=== PATIENT | female | born 1965 | race Asian ===

== ENCOUNTER 2025-04-23 16:16 | Outpatient (AMB) | payer OTHER, SELFPAY ==
--- NOTE | 2025-04-23 16:33 | MHC.OFFWIV ---
Intake Vital Signs 04/23/25 16:35 Height 5 ft 2 in Weight 122 lb BMI 22.3 BP 142/90 H Blood Pressure Location Lt brachial Position Sitting Pulse 96 Pulse Source Pulse Oximeter Temp 98.3 F Temp Source Oral Pulse Oximetry (%) 98 Oxygen Delivery Method Room Air Comment High BP: pt unable to take BP meds d/t stomach pain- provider notified Intake Visit Reasons: EP-abdominal pain Intake Note: pt presents with abdominal pain for a couple days - denies pain with urination,diarrhea, constipation, nausea/vomiting Allergies No Known Allergies Allergy (Verified 04/23/25 16:35) Medication List - Last Reconciled 04/23/25 by Katherine Delcid NP famotidine 20 mg PO BEDTIME lisinopril-hydrochlorothiazide 20-25 mg 1 tab PO DAILY metformin 850 mg PO BID omeprazole 20 mg PO BID Do you need a note to return to daycare/school/sports/work: No HPI HPI Comments History of Present Illness Details Patient presents with epigastric pain for 2 days. Reports a history of acid reflux and is currently taking Omeprazole 20 mg daily. Denies nausea, vomiting, diarrhea, constipation, urinary or vaginal symptoms. Denies fevers or chills. [facility] Medical History (Updated 04/23/25 @ 17:21 by Katherine Delcid NP) GERD (gastroesophageal reflux disease) Physical Exam Vital Signs: Last Vital Signs Temp 98.3 F 04/23/25 16:35 Pulse 96 04/23/25 16:35 BP 142/90 H 04/23/25 16:35 Pulse Ox 98 04/23/25 16:35 Oxygen Delivery Method Room Air 04/23/25 16:35 BMI result Body Mass Index 22.3 Const General: no acute distress Nutritional Appearance: well nourished Orientation/consciousness: patient oriented x3 Resp Effort & Inspection: normal respiratory effort Cardio Rate: regular rate GI Inspection: Yes Abdominal panniculus present Palpation (GI): Soft to palpation, not firm, Tenderness to palpation present (GI) in the epigastrum, no guarding, not rigid and No hepatosplenomegaly present Auscultation: normal bowel sounds Rectal Exam - Female: deferred General: Yes no CVA tenderness Back/Spine/Pelvis Back: no CVA tenderness Neuro General: patient oriented x3, gait normal and moves all extremities Psych Speech and movement: Normal speech and movement present Assessment & Plan Assessment & Plan (1) GERD (gastroesophageal reflux disease): Code(s): K21.9 - Gastro-esophageal reflux disease without esophagitis Qualifiers: Esophagitis presence: without esophagitis Qualified Code(s): K21.9 - Gastro-esophageal reflux disease without esophagitis Plan: Epigastric pain, likely related to gastroesophageal reflux disease (GERD) flare Differential includes peptic ulcer disease, gastritis, biliary pathology, pancreatitis. Increase Omeprazole to 20 mg BID. Added Famotidine 20 mg at bedtime. Recommended avoiding NSAIDs, alcohol, and spicy foods. Monitor for warning signs: vomiting, hematemesis, melena, severe or worsening pain. Medications: New famotidine 20 mg PO BEDTIME 30 tabs 1RF K21.9 - Gastro-esophageal reflux disease without esophagitis omeprazole 20 mg PO BID 60 caps 1RF K21.9 - Gastro-esophageal reflux disease without esophagitis Coding Level of Care Code New Pt Level 4 (88282) Diagnoses Gastroesophageal reflux disease without esophagitis K21.9 Esophagitis presence: without esophagitis Time Spent (min) 20
[2025-04-23 16:35] VITALS: BP 142/90; PULSE 96; TEMP 36.8; O2SAT 98; BMI 22.3
--- OUTSIDE RECORDS SUMMARY | 2025-04-23 19:38 | XMS_ITS | Encounter Summary ---
Author Organization [facility] Address [address] [place] [phone] Phone Care Team Providers Care Power Plant Operators Supervisor Name Role Phone Lauryn Palomino MD Primary Care Provider Encounter Details Date Type Department Care Team (Late st Contact Info) Description 04/21/2020 Procedure Pass [facility], Ct Scan - [address] [address] Social History Tobacco Use Types Packs/Day Years Used Date Smoking Tobacco: Never Alcohol Use Standard Drinks/Week Comments Never 0 (1 standard drink = 0.6 oz pur e alcohol) Comments Unknown Sex and Gender Information Value Date Recorded Sex Assigned at Female 04/20/2020 11:45 PM EST Legal Sex Female 11:02 PM EST Gender Identity Female 04/20/2020 11:45 PM EST Sexual Orientation Straight 04/20/2020 11 :45 PM EST documented as of this encounter Plan of Treatment Not on file documented as of this encounter Visit Diagnoses Not on filedocumented in this encounter Care Teams Power Plant Operators Supervisor Relationship Specialty Start Date End Date Lauryn Palomino MD [address] [place] [phone] PCP - General Internal Medicine 04/20/20 documented as of this encounter Additional Source Comments The information contained in this document represents components of the legal health record. It is not the complete legal health record.[facility]
--- OUTSIDE RECORDS SUMMARY | 2025-04-23 19:38 | XMS_ITS | Encounter Summary ---
Author Organization [facility] Address [address] [place] [address] Phone Care Team Providers Care Special Education Educational Assistant Name Role Phone Lauryn Palomino MD Primary Care Provider Encounter Details Date Type Department Care Team (Late st Contact Info) Description 05/21/2020 Ancillary Orders [facility],Outside Imaging [address] [place] [address] System, Provider Not In, [facility] [address] [address] Social History Tobacco Use Types Packs/Day Years [...] on file documented as of this encounter Results * Mammogram Outside (No Interpretation) (04/11/2016 12:00 AM EST) Narrative SYSTEMGENERATED, DOCUMENTATION - 05/21/2020 10:56 AM EST This study is for PACS storage only and not for interpretation. us Provider Not In System PhD IMG OUTSIDE IMAGING W /OUT INTERPRETATION Final Result documented in this encounter Visit Diagnoses Not on filedocumented in this encounter Care Teams Special Education Educational Assistant Relationship Specialty Start Date End Date Lauryn Palomino MD [address] [place] [phone] PCP - General Internal Medicine 04/20/20 documented as of this encounter Additional Source Comments The information contained in this document represents components of the legal health record. It is not the complete legal health record.[facility]
--- OUTSIDE RECORDS SUMMARY | 2025-04-23 19:38 | XMS_ITS | Clinical Summary ---
Author Organization [facility] Address [address] [place] [address] [place] [phone] Phone Care Team Providers Care Warehouse Material Handler Name Role Phone Lauryn Palomino MD Primary Care Provider Allergies No known active allergies Medications lisinopril (PRINIVIL,ZESTRI L) 5 MG tablet Take 1 tablet (5 mg total) by mouth daily. 20 tablet 04/21/2020 Active Active Problems No known active problems Social History Tobacco Use Types Packs/Day Years Used Date Smoking Tobacco: Never Alcohol Use Standard Drinks/Week Comments Never 0 (1 standard drink = 0.6 oz pur e alcohol) Education Answer Date Recorded Are you interested in more education? Not on anh e 09/01/2022 Are you concerned about learning? Not on file 09/01/2022 No 09/01/2022 No 09/01/2022 Digital Access Answer Date Recorded No 10/03/2022 No 10/03/2022 Reliable internet access at home? Not on file 10/03/2022 Device with a working camera? Not on file Comments Unknown Sex and Gender Information Value Date Recorded Sex Assigned at Female 04/20/2020 11:45 PM EST Legal Sex Female 11:02 PM EST Gender Identity Female 04/20/2020 11:45 PM EST Sexual Orientation Straight 04/20/2020 11 :45 PM EST Last Filed Vital Signs Vital Sign Reading Time Taken Comments Blood Pressure 187/107 04/21/2020 1:44 AM EST Pulse 95 04/21/2020 1:44 AM EST Temperature 36.4 C (97.5 F) 04/20/2020 11:37 PM EST Respiratory Rate 18 04/21/2020 1:44 AM EST Oxygen Saturation 99% 04/21/2020 1:44 AM EST Inhaled Oxygen Concentration - - Weight - - Height - - Body Mass Index - - Plan of Treatment Not on file Medical Devices Not on file Insurance NON NSPG PCP [employer]ARITY COMMERCIAL NON NSPG PCP CLARITY COMMERCIAL NON NSPG PCP CLARITY COMMERCIAL DELPHIENSE NON NSPG PCP CLARITY COMMERCIAL WELLSENSE NON NSPG PCP CLARITY COMMERCIAL WELLSENSE NON NSPG PCP CLARITY COMMERCIAL Care Teams Warehouse Material Handler Relationship Specialty Start Date End Date Lauryn Palomino MD [address] [place] [phone] PCP - General Internal Medicine 04/20/20 Additional Source Comments The information contained in this document represents components of the legal health record. It is not the complete legal health record.[facility]
--- OUTSIDE RECORDS SUMMARY | 2025-04-23 19:38 | XMS_ITS | Encounter Summary ---
Author Organization [facility] Address [address] [place] [phone] Phone Care Team Providers Care Supervisor Food Checkers And Cashiers Name Role Phone Lauryn Palomino MD Primary Care Provider Encounter Details Date Type Department Care Team (Late st Contact Info) Description 05/20/2020 Ancillary Orders Virtual Department [address] [place] [address] Sadia Head MD [address] [place] [address] [place] [phone] Breast screening Social History Tobacco Use Types Packs/Day Years [...] documented as of this encounter Visit Diagnoses Diagnosis Breast screening Breast screening, unspecified documented in this encounter Care Teams Supervisor Food Checkers And Cashiers Relationship Specialty Start Date End Date Lauryn Palomino MD [address] [place] [phone] PCP - General Internal Medicine 04/20/20 documented as of this encounter Additional Source Comments The information contained in this document represents components of the legal health record. It is not the complete legal health record.[facility]
== END 2025-04-23 17:06 | disposition home or self-care (01) ==
PROVIDERS: PCP Internal Medicine; Visit Provider Nurse Practitioner Family
DX: K21.9 Gastro-esophageal reflux disease without esophagitis (principal)

== ENCOUNTER → 2025-04-23 16:16 | Outpatient (BNVA) | payer OTHER, SELFPAY | PROVIDERS: PCP Internal Medicine; Visit Provider Physician Assistant Medical | DX: R10.13 Epigastric pain (principal); K21.9 Gastro-esophageal reflux disease without esophagitis; Z79.899 Other long term (current) drug therapy | CPT/HCPCS: 99202 ==

== ENCOUNTER 2025-05-04 14:59 | Outpatient (AMB) | payer OTHER, SELFPAY ==
--- NOTE | 2025-05-04 15:03 | MHC.OFFVIS ---
Vital Signs 05/04/25 15:14 Height 5 ft 2 in Weight 120 lb BMI 21.9 BP 152/84 H Blood Pressure Location Rt brachial Position Sitting Pulse 104 H Pulse Source Pulse Oximeter Pulse Oximetry (%) 97 Oxygen Delivery Method Room Air Intake Visit Reasons: colo screening Intake Note: New pt for initial eval of GERD. Pt is new to [facility] + PCP CC: C/O GERD w/ intermittent epigastric pain. Pt has dealt with reflux for an extended period of time and has attempted treatment as recommended by her PCP w/o much relief. Pt denies ever having colonoscopy or EGD. Line Assembly Utility Worker Required: Yes Line Assembly Utility Worker Services: Line Assembly Utility Worker Offered & Declined Accompanied by: Son Allergies No Known Allergies Allergy (Verified 04/23/25 16:35) HPI HPI colo screening: Details: 60 year old? female with past medical history of hypertension, diabetes, GERD is here today for pre colonoscopy screening.? Patient was sent to us by her PCP.? This is her first colonoscopy screening.? Patient reports history of acid reflux in the past, however it went away and then just about 6 months ago or so she started having again acid reflux. Patient was placed on omeprazole. Started taking magnesium citrate twice a day and reports that her symptoms went away. Patient stopped taking Mag citrate and few days later patient had epigastric pain to the point when she needed to seek medical attention. Patient went to urgent care and she was placed on Pepcid and omeprazole was increased to twice a day. Despite the increase and addition of Pepcid she continues to have dose symptoms. About a week ago she started taking magnesium citrate and reports that she is feeling better. Few days ago patient reports waking up with lots of phlegm without any upper respiratory symptoms. Patient denies any fever or chills. Patient denies dyspepsia, dysphagia or odynophagia. Patient denies melena, hematochezia, unintentional weight loss or ribbon like stools. Patient moves her bowels daily. Patient denies any family history of CRC. Patient never had anesthesia in the past. ? Negative for history of sleep apnea.? Denies any history of cardiac, renal, pulmonary, or hepatic disease.?? No history of infectious? diseases like hepatitis A, B, C, HIV or tuberculosis.? Patient is not on any anticoagulation [facility] Medical History (Updated 05/04/25 @ 15:46 by EMRE GaonaP-BC) Diabetes mellitus HTN (hypertension) GERD (gastroesophageal reflux disease) Social History Alcohol intake: never Patient Tobacco Use Status: Never used Tobacco Review of Systems Const Denies weight gain and Denies weight loss ENT Reports no additional complaints, Denies dysphagia and Denies odynophagia Card Reports no additional complaints Resp Reports no additional complaints GI Reports abdominal pain (Epigastric), Denies belching, Denies melena, Reports bloating, Denies change in bowel habits, Denies dysphagia, Denies excessive flatus, Denies dyspepsia, Reports heartburn, Denies diarrhea, Denies loose stools, Denies nausea, Denies odynophagia and Denies vomiting Musc Reports no additional complaints Neuro Reports no additional complaints Psych Reports no additional complaints Endo Reports no additional complaints Physical Exam Const General: healthy appearing, no acute distress and well developed Nutritional Appearance: well nourished Orientation/consciousness: patient oriented x3 Resp Effort & Inspection: normal respiratory effort, able to speak in complete sentences, no tracheal deviation and symmetric chest movement Auscultation: clear to auscultation bilaterally Cardio Rate: regular rate GI Inspection: Yes normal to inspection and No distended Palpation (GI): Soft to palpation, not firm, nontender and No hepatosplenomegaly present Auscultation: normal bowel sounds General: Yes no CVA tenderness Back/Spine/Pelvis Back: no CVA tenderness Skin General skin exam: elasticity normal, turgor normal and dry skin Neuro General: patient oriented x3 Psych Appearance: grossly normal Mental Status: mental status grossly normal Assessment & Plan Assessment & Plan (1) GERD (gastroesophageal reflux disease): Code(s): K21.9 - Gastro-esophageal reflux disease without esophagitis Category: Medical Qualifiers: Esophagitis presence: without esophagitis Qualified Code(s): K21.9 - Gastro-esophageal reflux disease without esophagitis (2) Screen for colon cancer: Code(s): Z12.11 - Encounter for screening for malignant neoplasm of colon Plan Patient denies any cardiac or respiratory symptoms.? Patient reports acid reflux. She will take famotidine twice a day for couple weeks and return back for H pylori breath test. After breakfast patient will start taking Nexium in the morning and can continue taking famotidine at bedtime. Will check transglutaminase, A1c, lipase, CMP and CBC as well as vitamin B12, folate and vitamin-D level. Patient never had anesthesia in the past.? Denies any history of sleep apnea.? No history of infectious diseases in the past or present.? Not on any anticoagulation therapy.? No family history of colon cancer.? Patient was apprehensive about going for colonoscopy, however we have discussed how important it is for her to have 1 done. Patient denies melena, hematochezia, unintentional weight loss or ribbon like stools.? Discussed at length the pre-procedure,? prep, diet & medications as well as what to expect prior, during and after the procedure.?? Stressed the importance of good bowel prep.? Recommended the use of Vaseline or Calmoseptine OTC & baby wipes with bowel movements to promote comfort.? ?Patient verbalizes understanding and agrees to plan of care.? She was given the opportunity to ask questions and all questions answered.? We will see her after the procedure.? Orders: Orders Transglutaminase Ab IgG Today R10.9 - Unspecified abdominal pain Hemoglobin A1c Today Z83.3 - Family history of diabetes mellitus Lipase Today R10.9 - Unspecified abdominal pain Comprehensive Met. Panel Today K21.9 - Gastro-esophageal reflux disease without esophagitis H Pylori Breath Test Today K21.9 - Gastro-esophageal reflux disease without esophagitis Transglutaminase IgA Today R10.9 - Unspecified abdominal pain Complete Blood Count no Diff Today K21.9 - Gastro-esophageal reflux disease without esophagitis Vitamin B12 and Folate Today R19.7 - Diarrhea, unspecified Vitamin D 25-OH (D2 and D3) Today E55.9 - Vitamin D deficiency, unspecified Referrals GI Procedure Notification K21.9 - Gastro-esophageal reflux disease without esophagitis, Z12.11 - Encounter for screening for malignant neoplasm of colon Medications: New bisacodyl (Dulcolax (bisacodyl)) take 4 tabs at noon the day before your colonoscopy 20 mg (4 x 5 mg) PO ONCE 4 tabs 0RF constipation 1 day Z12.11 - Encounter for screening for malignant neoplasm of colon esomeprazole magnesium (Nexium) 40 mg PO DAILY 30 caps 2RF K21.9 - Gastro-esophageal reflux disease without esophagitis esomeprazole magnesium (Nexium) 40 mg PO DAILY 30 caps 3RF K21.9 - Gastro-esophageal reflux disease without esophagitis polyethylene glycol 3350 (Miralax) As directed by gastroenterology department at [facility] 238 grams PO ONCE 238 grams 0RF Z12.11 - Encounter for screening for malignant neoplasm of colon Changed From famotidine 20 mg PO BEDTIME 30 tabs 1RF K21.9 - Gastro-esophageal reflux disease without esophagitis To famotidine 20 mg PO BID 30 tabs 1RF K21.9 - Gastro-esophageal reflux disease without esophagitis Discontinued omeprazole Discontinued Reason: Doctor's Order 20 mg PO BID 60 caps 1RF K21.9 - Gastro-esophageal reflux disease without esophagitis Coding Level of Care Code New Pt Level 4 (81538) Diagnoses Gastroesophageal reflux disease without esophagitis K21.9 Esophagitis presence: without esophagitis Screen for colon cancer Z12.11 Time Spent (min) 45 Comment 35 minutes spent with patient and additional 10 minutes spent reviewing her records
[2025-05-04 15:14] VITALS: BP 152/84; PULSE 104; O2SAT 97; BMI 21.9
--- OUTSIDE RECORDS SUMMARY | 2025-05-04 17:20 | XMS_ITS | Clinical Summary ---
Author Organization [facility] Address [address] [place] [address] [place] [phone] Phone Care Team Providers Care Information Technology Project Manager Name Role Phone Lauryn Palomino MD Primary [...] CLARITY COMMERCIAL NON NSPG PCP CLARITY COMMERCIAL [place] NON NSPG PCP CLARITY COMMERCIAL WELLSENSE NON NSPG PCP CLARITY COMMERCIAL WELLSENSE NON NSPG PCP CLARITY COMMERCIAL Care Teams Information Technology Project Manager Relationship Specialty Start Date End Date Lauryn Palomino MD [address] [place] [phone] PCP - General Internal Medicine 04/20/20 Additional Source Comments The information contained in this document represents components of the legal health record. It is not the complete legal health record.[facility]
--- OUTSIDE RECORDS SUMMARY | 2025-05-04 17:20 | XMS_ITS | Encounter Summary ---
Author Organization [facility] Address [address] [place] [address] Phone Care Team Providers Care Fig Bar Machine Operator Name Role Phone Lauryn Palomino MD Primary Care Provider Encounter Details Date Type Department Care Team (Late st Contact Info) Description 05/21/2020 Ancillary Orders [facility],Outside Imaging [address] [place] [address] System, Provider Not In, [facility] [address] [address] Social History Tobacco Use Types Packs/Day Years [...] on filedocumented in this encounter Care Teams Fig Bar Machine Operator Relationship Specialty Start Date End Date Lauryn Palomino MD [address] [place] [phone] PCP - General Internal Medicine 04/20/20 documented as of this encounter Additional Source Comments The information contained in this document represents components of the legal health record. It is not the complete legal health record.[facility]
--- OUTSIDE RECORDS SUMMARY | 2025-05-04 17:20 | XMS_ITS | Encounter Summary ---
Author Organization [facility] Address [address] [place] [phone] Phone Care Team Providers Care Newspaper Writer Name Role Phone Lauryn Palomino MD Primary Care Provider Encounter Details Date Type Department Care Team (Late st Contact Info) Description 05/20/2020 Ancillary Orders Virtual Department [address] [place] [address] Sadia Head MD [address] [place] [address] [place] [address] Breast screening Social History Tobacco Use Types [...] unspecified documented in this encounter Care Teams Newspaper Writer Relationship Specialty Start Date End Date Lauryn Palomino MD [address] [place] [phone] PCP - General Internal Medicine 04/20/20 documented as of this encounter Additional Source Comments The information contained in this document represents components of the legal health record. It is not the complete legal health record.[facility]
--- OUTSIDE RECORDS SUMMARY | 2025-05-04 17:20 | XMS_ITS | Encounter Summary ---
Author Organization [facility] Address [address] [facility] [address] [address] [place] [phone] Phone Care Team Providers Care Silver Holloware Assembler Name Role Phone Lauryn Palomino MD Primary Care Provider Encounter Details Date Type Department Care Team (Late st Contact Info) Description 04/21/2020 Procedure Pass [facility], Ct Scan - [address] [address] Social History Tobacco Use Types Packs/Day Years [...] on filedocumented in this encounter Care Teams Silver Holloware Assembler Relationship Specialty Start Date End Date Lauryn Palomino MD [address] [place] [phone] PCP - General Internal Medicine 04/20/20 documented as of this encounter Additional Source Comments The information contained in this document represents components of the legal health record. It is not the complete legal health record.[facility]
== END 2025-05-04 15:47 | disposition home or self-care (01) ==
LOC: HO.HGI 15:00
PROVIDERS: PCP Internal Medicine; Visit Provider Nurse Practitioner Family
DX: Z01.818 Encounter for other preprocedural examination (principal); Z12.11 Encounter for screening for malignant neoplasm of colon; K21.9 Gastro-esophageal reflux disease without esophagitis
CPT/HCPCS: 99204

== ENCOUNTER 2025-05-04 14:59 | Outpatient (REF) | payer OTHER, SELFPAY ==
[2025-05-04 16:44] LABS: Hematocrit 37.3 % (37.0-47.0); Hemoglobin 12.2 g/dl (12.0-16.0); Mean Corpuscular HGB Conc 32.7 g/dl (31.0-35.0); Mean Corpuscular Hemoglobin 26.8 pg (27.0-33.0); Mean Corpuscular Volume 81.8 fL (80.0-98.0); NRBC Abs Auto 0.000 X10*3/uL (0.0-0.012); NRBC Pct Auto 0.0 /100WBC (0.0-0.2); Platelet Count 340 X10*3/uL (160-400); Red Blood Count 4.56 X10*6/uL (4.20-5.50); White Blood Count 7.2 X10*3/uL (4.8-10.8)
[2025-05-04 18:16] LABS: Alanine Aminotransferase 17 U/L (0-31); Albumin Level 4.6 g/dL (3.5-5.0); Alkaline Phosphatase 72 U/L (39-117); Anion Gap 13 (12-20); Aspartate Amino Transferase 17 U/L (5-31); Blood Urea Nitrogen 16 mg/dL (9-16); Calcium 9.5 mg/dL (8.4-10.2); Carbon Dioxide 28 mmol/L (22-29); Chloride 101 mmol/L (96-108); Estimated Glomerular Filt Rate > 60; Lipase 51 U/L (8-78); Potassium 3.7 mmol/L (3.3-5.1); Sodium 138 mmol/L (135-145); Total Protein 7.6 g/dL (6.5-8.0)
[2025-05-04 18:26] LABS: Folate 4.1 ng/mL (> or = 4.0); Vitamin B12 690 pg/mL (200-900)
[2025-05-05 21:18] LABS: Transglutaminase Ab IgG <1.0 U/mL
== END 2025-05-04 15:00 | disposition home or self-care (01) ==
LOC: HO.LAB 14:59
PROVIDERS: PCP Internal Medicine; Visit Provider Nurse Practitioner Family
DX: K21.9 Gastro-esophageal reflux disease without esophagitis (principal); E55.9 Vitamin D deficiency, unspecified; R10.9 Unspecified abdominal pain; R19.7 Diarrhea, unspecified; Z83.3 Family history of diabetes mellitus; Z13.21 Encounter for screening for nutritional disorder; Z12.11 Encounter for screening for malignant neoplasm of colon
CPT/HCPCS: 36415; 80053; 82306; 82607; 82746; 83036; 83690; 85027; 86364; 99202